=== PATIENT | male | born 1950 | race Caucasian/White ===

== ENCOUNTER 2017-03-07 17:48 | Emergency (ER) | payer OTHER ==
[~2017-03-07] VITALS: Ht 172.7 cm; Wt 84.8 kg
[~2017-03-07 17:48] MED LIST: ASPIRIN81 M1 PO; COZAAR100 MG PO; HYDROCODONE BIT1 T11 PO; LINZESS145 MC1 PO; LOTRIMIN1% TP; METFORMIN500 MG PO; PROBIOTIC250 MG PO; VITAMIN C1000 M2 PO
[2017-03-07 18:15] VITALS: BP 139/70
== END 2017-03-07 19:24 | disposition home or self-care (01) ==
LOC: ED 17:48
DX: H53.9 Unspecified visual disturbance (principal); H43.89 Other disorders of vitreous body; Z88.2 Allergy status to sulfonamides; Z79.82 Long term (current) use of aspirin; Z79.899 Other long term (current) drug therapy

== ENCOUNTER → 2020-01-22 | Outpatient (CLI) | payer OTHER | END | disposition home or self-care (01) | LOC: RAD 11:42 | DX: E11.69 Type 2 diabetes mellitus with other specified complication (principal); K12.1 Other forms of stomatitis; R68.84 Jaw pain; F48.9 Nonpsychotic mental disorder, unspecified; F45.8 Other somatoform disorders ==

== ENCOUNTER → 2020-08-06 | Outpatient (CLI) | payer OTHER | END | disposition home or self-care (01) | LOC: RAD 10:53 | PROVIDERS: ATTEND Nurse Practitioner Family | DX: E11.69 Type 2 diabetes mellitus with other specified complication (principal); R79.89 Other specified abnormal findings of blood chemistry; I10 Essential (primary) hypertension; F45.8 Other somatoform disorders; E78.5 Hyperlipidemia, unspecified; R07.0 Pain in throat; R07.9 Chest pain, unspecified ==

== ENCOUNTER → 2020-08-11 | Outpatient (CLI) | payer OTHER | END | disposition home or self-care (01) | LOC: CT 09:49 | PROVIDERS: ATTEND Nurse Practitioner Family | DX: I31.3 Pericardial effusion (noninflammatory) (principal); R59.1 Generalized enlarged lymph nodes; R07.0 Pain in throat; R79.89 Other specified abnormal findings of blood chemistry; E11.69 Type 2 diabetes mellitus with other specified complication; F45.8 Other somatoform disorders; I10 Essential (primary) hypertension; E78.5 Hyperlipidemia, unspecified ==

== ENCOUNTER → 2020-08-14 | Outpatient (CLI) | payer OTHER | END | disposition home or self-care (01) | LOC: CARD 08-13 07:30 → CT 08-13 09:00 → CARD 00:45 | PROVIDERS: ATTEND Nurse Practitioner Family | DX: R07.9 Chest pain, unspecified (principal); E11.69 Type 2 diabetes mellitus with other specified complication; R79.89 Other specified abnormal findings of blood chemistry; F45.8 Other somatoform disorders; I10 Essential (primary) hypertension; E78.5 Hyperlipidemia, unspecified; R07.0 Pain in throat ==

== ENCOUNTER → 2020-08-18 | Outpatient (CLI) | payer OTHER | END | disposition home or self-care (01) | LOC: US 00:31 | PROVIDERS: ATTEND Nurse Practitioner Family | DX: R79.89 Other specified abnormal findings of blood chemistry (principal); E11.69 Type 2 diabetes mellitus with other specified complication; F45.8 Other somatoform disorders; I10 Essential (primary) hypertension; E78.5 Hyperlipidemia, unspecified; R07.9 Chest pain, unspecified; R07.0 Pain in throat ==

== ENCOUNTER 2020-09-12 13:38 | Emergency (ER) | payer OTHER ==
[~2020-09-12] VITALS: Ht 175.2 cm; Wt 86.2 kg
[2020-09-12 14:10] LABS: BASO % 0.3 % (0.0-1.0); EOS # 0.1 10*3/uL (0.0-0.4); HEMATOCRIT 47.3 % (42.0-52.0); LYMPH # 2.2 10*3/uL (1.3-4.4); LYMPH % 32.2 % (27.0-41.0); MEAN CELL VOLUME 92.6 fl (80.0-94.0); MEAN CORPUSCULAR HGB 31.3 pg (27.0-31.0); MEAN CORPUSCULAR HGB CONC 33.8 g/dl (33.0-37.0); MEAN PLATELET VOLUME 9.3 fl (9.6-12.3); MONO # 0.5 10*3/uL (0.1-1.0); MONO % 7.3 % (3.0-9.0); NEUT # 4.1 10*3/uL (2.3-7.9); NEUT % 58.8 % (47.0-73.0); PLATELET COUNT AUTOMATED 179 10*3/uL (130-400); RED BLOOD COUNT 5.11 10*6/uL (4.50-5.90); RED CELL DISTRI WIDTH 12.8 % (0-14.5)
[2020-09-12 14:24] LABS: ACT PARTIAL THROMBO TIME 25.4 SECONDS (20.0-32.1); INTERNATIONAL NORM RATIO 0.9 (2.0-3.5)
[2020-09-12 14:36] LABS: ALBUMIN 4.3 gm/dl (3.1-4.5); BUN 16 mg/dl (7-24); CHLORIDE 112 mmol/L (98-107); CREATININE 1.12 mg/dL (0.70-1.30); POTASSIUM 4.6 mmol/L (3.5-5.1); SGOT/AST 32 IU/L (3-35); SGPT/ALT 61 U/L (12-78); SODIUM 142 mmol/L (136-145); TOTAL PROTEIN 7.3 gm/dL (6.4-8.2)
[2020-09-12 14:39] LABS: ALKALINE PHOSPHATASE 104 U/L (45-117)
[2020-09-12 14:43] LABS: TROPONIN I < 0.015 ng/ml (<0.045)
[2020-09-12 15:03] VITALS: BP 125/77
== END 2020-09-12 15:39 | disposition home or self-care (01) ==
LOC: ED 13:38
PROVIDERS: Emergency Medicine
DX: I10 Essential (primary) hypertension (principal); E78.5 Hyperlipidemia, unspecified; Z88.8 Allergy status to other drugs, medicaments and biological substances; Z88.2 Allergy status to sulfonamides; Z79.899 Other long term (current) drug therapy; Z79.82 Long term (current) use of aspirin

== ENCOUNTER 2021-01-15 15:32 | Emergency (ER) | payer OTHER ==
[~2021-01-15] VITALS: Ht 175.2 cm; Wt 88.5 kg
[2021-01-15 15:38] VITALS: BP 140/92
== END 2021-01-15 20:46 | disposition home or self-care (01) ==
LOC: ED 15:32
DX: S16.1XXA Strain of muscle, fascia and tendon at neck level, initial encounter (principal); S09.90XA Unspecified injury of head, initial encounter; E11.9 Type 2 diabetes mellitus without complications; I10 Essential (primary) hypertension; Z79.82 Long term (current) use of aspirin; Z79.84 Long term (current) use of oral hypoglycemic drugs; X58.XXXA Exposure to other specified factors, initial encounter; Y93.89 Activity, other specified; Y92.89 Other specified places as the place of occurrence of the external cause; Y99.8 Other external cause status

== ENCOUNTER 2021-01-28 15:20 | Emergency (ER) | payer OTHER ==
[~2021-01-28] VITALS: Ht 175.2 cm; Wt 88.5 kg
[2021-01-28 15:25] VITALS: BP 141/86
== END 2021-01-28 18:33 | disposition home or self-care (01) ==
LOC: ED 15:20
DX: R51.9 Headache, unspecified (principal); R11.0 Nausea; Z88.2 Allergy status to sulfonamides; Z88.1 Allergy status to other antibiotic agents; Z79.899 Other long term (current) drug therapy; Z79.82 Long term (current) use of aspirin

== ENCOUNTER → 2021-03-05 | Outpatient (CLI) | payer OTHER | END | disposition home or self-care (01) | LOC: US 11:33 | PROVIDERS: ATTEND Family Medicine | DX: L03.116 Cellulitis of left lower limb (principal); G89.29 Other chronic pain; R20.0 Anesthesia of skin; R20.2 Paresthesia of skin ==

== ENCOUNTER → 2021-03-25 | Outpatient (CLI) | payer OTHER | END | disposition home or self-care (01) | LOC: US 12:28 | PROVIDERS: ATTEND Nurse Practitioner Family | DX: M25.572 Pain in left ankle and joints of left foot (principal); I73.9 Peripheral vascular disease, unspecified; M79.602 Pain in left arm; R79.82 Elevated C-reactive protein (CRP); R70.0 Elevated erythrocyte sedimentation rate ==

== ENCOUNTER → 2021-04-30 | Outpatient (CLI) | payer OTHER | END | disposition home or self-care (01) | LOC: LAB 16:00 | PROVIDERS: ATTEND Nurse Practitioner Family | DX: R00.0 Tachycardia, unspecified (principal); M79.672 Pain in left foot ==

== ENCOUNTER → 2021-05-05 | Outpatient (CLI) | payer OTHER | END | disposition home or self-care (01) | LOC: CARD 08:41 | PROVIDERS: ATTEND Nurse Practitioner Family | DX: R00.0 Tachycardia, unspecified (principal) ==

== ENCOUNTER 2021-09-27 12:37 | Emergency (ER) | payer OTHER ==
[~2021-09-27] VITALS: Wt 93.0 kg
[2021-09-27 12:55] VITALS: BP 152/90
[2021-09-27 13:58] LABS: BASO % 0.5 % (0.0-1.0); EOS # 0.1 10*3/uL (0.0-0.4); EOS % 0.9 % (1.0-4.0); HEMATOCRIT 44.4 % (42.0-52.0); LYMPH # 1.8 10*3/uL (1.3-4.4); LYMPH % 27.6 % (27.0-41.0); MEAN CELL VOLUME 93.1 fl (80.0-94.0); MEAN CORPUSCULAR HGB 32.1 pg (27.0-31.0); MEAN CORPUSCULAR HGB CONC 34.5 g/dl (33.0-37.0); MONO # 0.5 10*3/uL (0.1-1.0); MONO % 7.2 % (3.0-9.0); NEUT # 4.2 10*3/uL (2.3-7.9); NEUT % 63.2 % (47.0-73.0); PLATELET COUNT AUTOMATED 188 10*3/uL (130-400); RED BLOOD COUNT 4.77 10*6/uL (4.50-5.90); RED CELL DISTRI WIDTH 13.7 % (0-14.5); WHITE BLOOD COUNT 6.6 10*3/uL (4.8-10.8)
[2021-09-27 14:16] LABS: ALKALINE PHOSPHATASE 114 U/L (45-117); BUN 19 mg/dl (7-24); CHLORIDE 113 mmol/L (98-107); POTASSIUM 4.3 mmol/L (3.5-5.1); SGOT/AST 29 IU/L (3-35); SGPT/ALT 49 U/L (12-78); SODIUM 140 mmol/L (136-145)
== END 2021-09-27 15:45 | disposition home or self-care (01) ==
LOC: ED 12:37
PROVIDERS: Physician Assistant
DX: R51.9 Headache, unspecified (principal); M54.2 Cervicalgia; Z88.2 Allergy status to sulfonamides; Z88.8 Allergy status to other drugs, medicaments and biological substances; Z79.899 Other long term (current) drug therapy; Z79.82 Long term (current) use of aspirin

== ENCOUNTER → 2021-11-11 | Outpatient (CLI) | payer OTHER | END | disposition home or self-care (01) | LOC: CT 10:26 | PROVIDERS: ATTEND Internal Medicine Pulmonary Disease | DX: R91.1 Solitary pulmonary nodule (principal) ==

== ENCOUNTER → 2023-03-22 | Outpatient (CLI) | payer MEDICARE ==
[2023-03-22 12:20] LABS: BASO % 0.3 % (0.0-1.0); EOS % 0.1 % (1.0-4.0); HEMATOCRIT 44.4 % (42.0-52.0); LYMPH # 1.3 10*3/uL (1.3-4.4); LYMPH % 18.5 % (27.0-41.0); MEAN CELL VOLUME 91.4 fl (80.0-94.0); MEAN CORPUSCULAR HGB 30.7 pg (27.0-31.0); MEAN CORPUSCULAR HGB CONC 33.6 g/dl (33.0-37.0); MEAN PLATELET VOLUME 9.5 fl (9.6-12.3); MONO # 0.9 10*3/uL (0.1-1.0); MONO % 12.4 % (3.0-9.0); NEUT # 4.7 10*3/uL (2.3-7.9); PLATELET COUNT AUTOMATED 148 10*3/uL (130-400); RED BLOOD COUNT 4.86 10*6/uL (4.50-5.90); RED CELL DISTRI WIDTH 14.8 % (0-14.5); WHITE BLOOD COUNT 6.9 10*3/uL (4.8-10.8)
[2023-03-22 12:49] LABS: ALKALINE PHOSPHATASE 95 U/L (46-116); BUN 13 mg/dl (9-23); CHLORIDE 107 mmol/L (98-107); POTASSIUM 4.2 mmol/L (3.4-5.1); SGPT/ALT 22 U/L (10-49)
== END | disposition home or self-care (01) ==
LOC: LAB 12:00
PROVIDERS: ATTEND Nurse Practitioner Family
DX: E11.69 Type 2 diabetes mellitus with other specified complication (principal); R09.81 Nasal congestion; U07.1 COVID-19

== ENCOUNTER → 2023-11-09 | Outpatient (CLI) | payer MEDICARE ==
[2023-11-09 15:46] LABS: HEMATOCRIT 44.2 % (42.0-52.0); MEAN CELL VOLUME 93.2 fl (80.0-94.0); MEAN CORPUSCULAR HGB 31.2 pg (27.0-31.0); MEAN CORPUSCULAR HGB CONC 33.5 g/dl (33.0-37.0); MEAN PLATELET VOLUME 9.3 fl (9.6-12.3); PLATELET COUNT AUTOMATED 147 10*3/uL (130-400); RED BLOOD COUNT 4.74 10*6/uL (4.50-5.90); RED CELL DISTRI WIDTH 14.4 % (0-14.5); WHITE BLOOD COUNT 10.6 10*3/uL (4.8-10.8)
[2023-11-09 15:54] LABS: MANUAL DIFF REFLEX YES
[2023-11-09 16:14] LABS: ALKALINE PHOSPHATASE 100 U/L (46-116); BUN 24 mg/dl (9-23); CHLORIDE 104 mmol/L (98-107); LIPASE 47 U/L (12-53); POTASSIUM 3.8 mmol/L (3.4-5.1); SGPT/ALT 21 U/L (5-49); TOTAL PROTEIN 6.6 gm/dL (6.0-8.0)
[2023-11-09 16:23] LABS: BURR CELLS FEW; PLATELET SUFFICIENCY NORMAL (NORMAL); TOTAL CELLS COUNTED 100 #CELLS
== END | disposition home or self-care (01) ==
LOC: LAB 15:32
PROVIDERS: ATTEND Nurse Practitioner Family
DX: R10.32 Left lower quadrant pain (principal)

== ENCOUNTER → 2023-11-11 | Outpatient (CLI) | payer MEDICARE ==
[~2023-11-11] MED LIST changes: +IOHEXOL 300 MG/ML 100 ML VIAL IV ONE
== END | disposition home or self-care (01) ==
LOC: CT 00:27
PROVIDERS: ATTEND Nurse Practitioner Family
DX: K52.9 Noninfective gastroenteritis and colitis, unspecified (principal); I25.10 Atherosclerotic heart disease of native coronary artery without angina pectoris; J84.10 Pulmonary fibrosis, unspecified

== ENCOUNTER → 2024-01-30 | Outpatient (CLI) | payer MEDICARE ==
[~2024-01-30] MED LIST changes: -IOHEXOL 300 MG/ML 100 ML VIAL IV ONE
[2024-01-30 12:07] LABS: BASO % 0.3 % (0.0-1.0); EOS # 0.1 10*3/uL (0.0-0.4); EOS % 0.5 % (1.0-4.0); HEMATOCRIT 40.6 % (42.0-52.0); LYMPH # 1.2 10*3/uL (1.3-4.4); LYMPH % 11.1 % (27.0-41.0); MEAN CELL VOLUME 94.4 fl (80.0-94.0); MEAN CORPUSCULAR HGB 31.4 pg (27.0-31.0); MEAN CORPUSCULAR HGB CONC 33.3 g/dl (33.0-37.0); MONO # 0.5 10*3/uL (0.1-1.0); MONO % 4.2 % (3.0-9.0); NEUT # 9.1 10*3/uL (2.3-7.9); NEUT % 83.1 % (47.0-73.0); PLATELET COUNT AUTOMATED 278 10*3/uL (130-400); RED CELL DISTRI WIDTH 13.6 % (0-14.5)
[2024-01-30 12:40] LABS: ALKALINE PHOSPHATASE 113 U/L (46-116); BUN 15 mg/dl (9-23); CHLORIDE 106 mmol/L (98-107); SGPT/ALT 12 U/L (5-49); TOTAL PROTEIN 6.6 gm/dL (6.0-8.0)
[2024-01-30 14:03] LABS: VITAMIN D, 25-HYDROXY 100.8 ng/mL (30-100)
== END | disposition home or self-care (01) ==
LOC: LAB 11:13
PROVIDERS: ATTEND Nurse Practitioner Family
DX: R53.83 Other fatigue (principal)

== ENCOUNTER → 2024-03-30 | Outpatient (CLI) | payer MEDICARE | END | disposition home or self-care (01) | LOC: RAD 16:12 | PROVIDERS: ATTEND Nurse Practitioner Family | DX: R07.9 Chest pain, unspecified (principal); R06.09 Other forms of dyspnea ==

== ENCOUNTER → 2024-05-08 | Outpatient (CLI) | payer MEDICARE | END | disposition home or self-care (01) | LOC: CT 15:33 | PROVIDERS: ATTEND Nurse Practitioner Family | DX: S06.0X0A Concussion without loss of consciousness, initial encounter (principal); S09.90XA Unspecified injury of head, initial encounter; G44.319 Acute post-traumatic headache, not intractable; X58.XXXA Exposure to other specified factors, initial encounter; Y93.89 Activity, other specified; Y92.89 Other specified places as the place of occurrence of the external cause; Y99.8 Other external cause status ==

== ENCOUNTER → 2024-07-13 | Outpatient (CLI) | payer MEDICARE ==
[2024-07-13 12:10] LABS: BASO % 0.5 % (0.0-1.0); EOS # 0.2 10*3/uL (0.0-0.4); EOS % 2.7 % (1.0-4.0); HEMATOCRIT 43.8 % (42.0-52.0); MEAN CORPUSCULAR HGB 31.8 pg (27.0-31.0); MEAN CORPUSCULAR HGB CONC 33.8 g/dl (33.0-37.0); MEAN PLATELET VOLUME 9.8 fl (9.6-12.3); MONO # 0.6 10*3/uL (0.1-1.0); MONO % 8.9 % (3.0-9.0); NEUT # 3.8 10*3/uL (2.3-7.9); NEUT % 59.9 % (47.0-73.0); PLATELET COUNT AUTOMATED 200 10*3/uL (130-400); RED BLOOD COUNT 4.66 10*6/uL (4.50-5.90); RED CELL DISTRI WIDTH 14.3 % (0-14.5); WHITE BLOOD COUNT 6.3 10*3/uL (4.8-10.8)
[2024-07-13 12:49] LABS: ALKALINE PHOSPHATASE 119 U/L (46-116); BUN 14 mg/dl (9-23); CHLORIDE 104 mmol/L (98-107); CHOLESTEROL 208 mg/dL (<200); LDL CHOLESTEROL 145 mg/dL (9-159); POTASSIUM 4.1 mmol/L (3.4-5.1); SGPT/ALT 27 U/L (5-49); TOTAL PROTEIN 6.8 gm/dL (6.0-8.0); TRIGLYCERIDES 68 mg/dl (<150)
== END | disposition home or self-care (01) ==
LOC: LAB 11:28
PROVIDERS: ATTEND Nurse Practitioner Family
DX: I10 Essential (primary) hypertension (principal); E78.5 Hyperlipidemia, unspecified; G89.29 Other chronic pain; E11.69 Type 2 diabetes mellitus with other specified complication

== ENCOUNTER 2024-09-26 08:56 | Emergency (ER) | payer OTHER ==
[~2024-09-26] VITALS: Ht 175.2 cm; Wt 86.2 kg
[2024-09-26 09:02] VITALS: BP 139/87
[2024-09-26] MEDS ORDERED: Acetaminophen/Oxycodone 5 MG/325 MG TABLET PO ONE (09:05)
[2024-09-26] MEDS ORDERED: TRAMADOL HCL50 MG PO (10:04)
== END 2024-09-26 10:09 | disposition home or self-care (01) ==
LOC: ED 08:56
DX: S13.4XXA Sprain of ligaments of cervical spine, initial encounter (principal); E78.5 Hyperlipidemia, unspecified; I10 Essential (primary) hypertension; Z88.2 Allergy status to sulfonamides; Z88.8 Allergy status to other drugs, medicaments and biological substances; Z98.890 Other specified postprocedural states; V79.40XA Driver of bus injured in collision with unspecified motor vehicles in traffic accident, initial encounter; Y93.89 Activity, other specified; Y92.410 Unspecified street and highway as the place of occurrence of the external cause; Y99.8 Other external cause status

== ENCOUNTER → 2024-11-01 | Outpatient (CLI) | payer MEDICAID, OTHER ==
[~2024-11-01] MED LIST changes: +TRAMADOL HCL50 MG PO
[2024-11-01 16:58] LABS: BASO % 0.4 % (0.0-1.0); EOS # 0.1 10*3/uL (0.0-0.4); EOS % 1.3 % (1.0-4.0); HEMATOCRIT 44.7 % (42.0-52.0); MEAN CELL VOLUME 95.1 fl (80.0-94.0); MEAN CORPUSCULAR HGB 31.9 pg (27.0-31.0); MEAN CORPUSCULAR HGB CONC 33.6 g/dl (33.0-37.0); MEAN PLATELET VOLUME 10.3 fl (9.6-12.3); MONO # 0.6 10*3/uL (0.1-1.0); MONO % 8.2 % (3.0-9.0); NEUT % 59.1 % (47.0-73.0); PLATELET COUNT AUTOMATED 203 10*3/uL (130-400); RED CELL DISTRI WIDTH 13.4 % (0-14.5); WHITE BLOOD COUNT 6.7 10*3/uL (4.8-10.8)
[2024-11-01 17:09] LABS: ALKALINE PHOSPHATASE 119 U/L (46-116); BUN 14 mg/dl (9-23); CHLORIDE 107 mmol/L (98-107); CHOLESTEROL 214 mg/dL (<200); LDL CHOLESTEROL 156 mg/dL (9-159); POTASSIUM 4.5 mmol/L (3.4-5.1); SGPT/ALT 22 U/L (5-49); TOTAL PROTEIN 6.8 gm/dL (6.0-8.0); TRIGLYCERIDES 87 mg/dl (<150)
== END | disposition home or self-care (01) ==
LOC: LAB 15:34
PROVIDERS: ATTEND Nurse Practitioner Family
DX: I10 Essential (primary) hypertension (principal); G62.9 Polyneuropathy, unspecified; E11.69 Type 2 diabetes mellitus with other specified complication; E78.5 Hyperlipidemia, unspecified

== ENCOUNTER → 2024-11-20 | Outpatient (CLI) | payer OTHER | END | disposition home or self-care (01) | LOC: RAD 15:43 | PROVIDERS: ATTEND Nurse Practitioner Family | DX: S69.90XA Unspecified injury of unspecified wrist, hand and finger(s), initial encounter (principal); M79.89 Other specified soft tissue disorders; M19.042 Primary osteoarthritis, left hand; X58.XXXA Exposure to other specified factors, initial encounter; Y93.89 Activity, other specified; Y92.89 Other specified places as the place of occurrence of the external cause; Y99.8 Other external cause status ==

== ENCOUNTER → 2025-01-29 | Outpatient (CLI) | payer OTHER ==
[2025-01-29 18:17] LABS: BASO # 0.0 10*3/uL (0.0-0.1); BASO % 0.5 % (0.0-1.0); EOS # 0.3 10*3/uL (0.0-0.4); EOS % 4.4 % (1.0-4.0); MEAN CELL VOLUME 97.0 fl (80.0-94.0); MEAN CORPUSCULAR HGB 32.0 pg (27.0-31.0); MEAN PLATELET VOLUME 10.2 fl (9.6-12.3); MONO # 0.5 10*3/uL (0.1-1.0); MONO % 7.2 % (3.0-9.0); NEUT # 4.0 10*3/uL (2.3-7.9); NEUT % 61.0 % (47.0-73.0); NUCLEATED RED BLOOD CELL 0.0 % (0.0-0.0); NUCLEATED RED BLOOD CELL 0.0 10*3/uL (0.0-0.0); PLATELET COUNT AUTOMATED 205 10*3/uL (130-400); RED CELL DISTRI WIDTH 15.4 % (0-14.5)
[2025-01-29 18:32] LABS: VITAMIN D, 25-HYDROXY 102.9 ng/mL (30-100)
== END | disposition home or self-care (01) ==
LOC: LAB 17:48
PROVIDERS: ATTEND Nurse Practitioner Family
DX: R53.82 Chronic fatigue, unspecified (principal)

== ENCOUNTER → 2025-05-02 | Outpatient (CLI) | payer OTHER ==
[2025-05-02 17:38] LABS: BASO # 0.1 10*3/uL (0.0-0.1); BASO % 0.8 % (0.0-1.0); EOS # 0.2 10*3/uL (0.0-0.4); EOS % 2.7 % (1.0-4.0); MEAN CELL VOLUME 96.4 fl (80.0-94.0); MEAN CORPUSCULAR HGB 32.3 pg (27.0-31.0); MEAN PLATELET VOLUME 10.9 fl (9.6-12.3); MONO # 0.6 10*3/uL (0.1-1.0); MONO % 8.9 % (3.0-9.0); NEUT # 3.6 10*3/uL (2.3-7.9); NEUT % 58.7 % (47.0-73.0); NUCLEATED RED BLOOD CELL 0.0 % (0.0-0.0); NUCLEATED RED BLOOD CELL 0.0 10*3/uL (0.0-0.0); PLATELET COUNT AUTOMATED 191 10*3/uL (130-400); RED CELL DISTRI WIDTH 14.2 % (0-14.5)
[2025-05-02 17:49] LABS: BUN 17 mg/dl (9-23); LDL CHOLESTEROL 103 mg/dL (9-159); SGPT/ALT 26 U/L (5-49)
== END | disposition home or self-care (01) ==
LOC: LAB 15:36
PROVIDERS: ATTEND Nurse Practitioner Family
DX: I10 Essential (primary) hypertension (principal); E11.69 Type 2 diabetes mellitus with other specified complication; G62.9 Polyneuropathy, unspecified; E78.5 Hyperlipidemia, unspecified; K59.09 Other constipation